=== PATIENT | male | born 1975 | race Caucasian/White ===

== ENCOUNTER 2020-01-05 22:45 | Emergency (ER) | payer OTHER ==
[~2020-01-05] VITALS: Ht 175.3 cm; Wt 95.3 kg
[~2020-01-05 22:45] MED LIST: ACETAMINOPHEN-1 EAC1 PO; ALLEGRA30 MG; AMOXICILLIN875 MG PO; CEPHALEXIN 500500 M1 PO; DOXYCYCLINE 10100 MG PO; NAPROSYN500 MG PO; NORCO 5-325 TA1 EACH PO; PREDNISONE50 MG PO; ROBAXIN 750 MG750 M1 PO; ULTRAM 50MG TAB50 MG PO
[2020-01-05] MEDS ORDERED: TRAMADOL 50 MG50 MG PO (23:06)
[2020-01-05] MEDS ORDERED: PERCOCET 5-3251 EACH PO (23:06)
[2020-01-05 23:41] LABS: ABSOLUTE BASOPHILS 0.1 thou/uL (0.0-0.2); ABSOLUTE EOSINOPHILS 0.7 thou/uL (0.0-0.7); ABSOLUTE LYMPHOCYTES 2.8 thou/uL (0.8-5.3); ABSOLUTE MONOCYTES 2.4 thou/uL (0.0-1.2); ABSOLUTE NEUTROPHILS 10.2 thou/uL (1.6-8.1); BASOPHILS 0.8 %; EOSINOPHILS 4.4 %; HEMATOCRIT 39.8 % (42.0-52.0); HEMOGLOBIN 13.9 gm/dL (14.0-18.0); LYMPHOCYTES 17.3 %; MCH 33.5 pg (26.0-34.0); MCHC 34.9 g/dL (28.0-37.0); MCV 96.1 fL (80.0-100.0); MONOCYTES 14.9 %; MPV 7.3 fl. (7.2-11.1); NUCLEATED RBCS 0 /100WBC; PLATELET COUNT* 292 thou/uL (150-400); POLYS 62.6 %; RBC 4.14 mil/uL (4.50-6.00); RDW-CV 12.4 % (10.5-14.5); WBC 16.3 thou/uL (4.0-11.0)
[2020-01-05 23:49] LABS: CALCIUM 8.4 mg/dL (8.5-10.1); CREATININE 1.4 mg/dL (0.6-1.3); POTASSIUM 3.6 mmol/L (3.5-5.1)
[2020-01-05 23:53] LABS: ALBUMIN 3.9 g/dL (3.4-5.0); TOTAL BILIRUBIN 0.5 mg/dL (<0.1-1.0)
[2020-01-06] MEDS ORDERED: CLEOCIN HCL300 MG PO (00:23)
[2020-01-06] MEDS ORDERED: PERCOCET 7.5-31 EAC1 PO (00:23)
[2020-01-06 01:55] VITALS: BP 142/78
== END 2020-01-06 01:55 | disposition home or self-care (01) ==
LOC: M.ERS 22:45
PROVIDERS: Emergency Medicine
DX: L02.214 Cutaneous abscess of groin (principal); L02.415 Cutaneous abscess of right lower limb; Z79.899 Other long term (current) drug therapy; Z90.89 Acquired absence of other organs